=== PATIENT | female | born 1995 | race Caucasian/White ===

== ENCOUNTER 2023-10-12 07:36 | Emergency (ER) | payer BC ==
[2023-10-12] MEDS ORDERED: ALBU6.7H15 INH (10:44)
[2023-10-12] MEDS ORDERED: DOXY100C5 MT (10:44)
== END 2023-10-12 08:14 | disposition left against medical advice (07) ==
LOC: ER 07:36
DX: R05.9 Cough, unspecified (principal); Z53.21 Procedure and treatment not carried out due to patient leaving prior to being seen by health care provider

== ENCOUNTER 2023-10-12 09:48 | Emergency (ER) | payer BC ==
[~2023-10-12] VITALS: Ht 152.4 cm; Wt 50.0 kg
[2023-10-12 09:52] VITALS: O2SAT 99
[2023-10-12] MEDS ORDERED: DOXY100C5 MT (10:44)
[2023-10-12] MEDS ORDERED: ALBU6.7H15 INH (10:44)
[2023-10-12] MEDS: DOXYCYCLINE HYCLATE 100MG CAPSULE PO ONE (10:45)
[2023-10-12 10:55] VITALS: BP 124/78; PULSE 89; RESP 16; TEMP 98.5
== END 2023-10-12 10:54 | disposition home or self-care (01) ==
LOC: ER 09:48
DX: J18.9 Pneumonia, unspecified organism (principal); R05.9 Cough, unspecified
CPT/HCPCS: 71045; 81025; 99283